=== PATIENT | female | born 1960 | race Asian ===

== ENCOUNTER → 2017-03-06 | Outpatient (CLI) | payer BC | LOC: BRMIMAGING 08:38 | PROVIDERS: ATTEND Family Medicine | DX: Z13.820 Encounter for screening for osteoporosis (principal); E78.00 Pure hypercholesterolemia, unspecified; E05.00 Thyrotoxicosis with diffuse goiter without thyrotoxic crisis or storm; D69.6 Thrombocytopenia, unspecified ==

== ENCOUNTER → 2017-04-29 | Outpatient (CLI) | payer BC | LOC: CIMAGING 19:09 | PROVIDERS: ATTEND Family Medicine | DX: M54.2 Cervicalgia (principal) | CPT/HCPCS: 72040-PO ==

== ENCOUNTER → 2017-05-09 | Outpatient (CLI) | payer OTHER, BC | LOC: CIMAGING 07:26 | PROVIDERS: ATTEND Family Medicine | DX: F07.81 Postconcussional syndrome (principal); R42 Dizziness and giddiness; R11.10 Vomiting, unspecified | CPT/HCPCS: 70450-PO ==

== ENCOUNTER → 2017-05-27 | Outpatient (CLI) | payer OTHER, BC | LOC: FIMAGING 07:11 | PROVIDERS: ATTEND Family Medicine | DX: M50.321 Other cervical disc degeneration at C4-C5 level (principal); M46.92 Unspecified inflammatory spondylopathy, cervical region; M48.02 Spinal stenosis, cervical region ==

== ENCOUNTER → 2017-07-23 | Outpatient (CLI) | payer BC | LOC: BRMIMAGING 11:40 | PROVIDERS: ATTEND Family Medicine | DX: Z12.31 Encounter for screening mammogram for malignant neoplasm of breast (principal) | CPT/HCPCS: G0202 ==

== ENCOUNTER → 2018-07-24 | Outpatient (CLI) | payer BC | LOC: BRMIMAGING 11:23 | PROVIDERS: ATTEND Family Medicine | DX: Z12.31 Encounter for screening mammogram for malignant neoplasm of breast (principal) ==